=== PATIENT | female | born 1995 | race Caucasian/White ===

== ENCOUNTER 2017-10-12 23:07 | Emergency (ER) | payer MEDICAID ==
[2017-10-12 23:22] VITALS: BP 146/93; PULSE 70; RESP 18; TEMP 98.5; O2SAT 100
[2017-10-12 23:35] LABS: HCG,QUALITATIVE URINE NEGATIVE (NEGATIVE)
[2017-10-12 23:36] LABS: SQUAMOUS EPITHIAL 1 /hpf (0-5); URINE BACTERIA OCC (<OCC); URINE BILIRUBIN NEGATIVE (NEGATIVE); URINE BLOOD NEGATIVE (NEGATIVE); URINE CLARITY Clear (Clear); URINE COLOR Colorless (YELLOW); URINE GLUCOSE (UA) NORMAL (Normal); URINE LEUKOCYTE ESTERASE NEG Leu/uL (Negative); URINE PROTEIN NEGATIVE (NEGATIVE); URINE UROBILINOGEN NORMAL mg/dL (0.2-1.0)
--- NOTE | 2017-10-13 00:29 | C.PDOC ---
History Of Present Illness 22 year old female presents to the ED for evaluation of vomiting and diarrhea which began today. Patient had two episodes of vomiting and four episodes of diarrhea. She denies fever, chills, abdominal pain, or sick contacts. Time Seen by Provider: 10/12/17 23:25 Chief Complaint (Nursing): GI Problem History Per: Patient History/Exam Limitations: no limitations Onset/Duration Of Symptoms: Hrs Current Symptoms Are (Timing): Still Present Radiation Of Pain To:: None Quality Of Discomfort: denies: "Pain" Associated Symptoms: Vomiting, Diarrhea. denies: Fever, Chills Additional History Per: Patient Abnormal Vaginal Bleeding: No Past Medical History Reviewed: Historical Data, Nursing Documentation, Vital Signs Vital Signs: Last Vital Signs Temp 98.5 F 10/12/17 23:17 Pulse 70 10/12/17 23:17 Resp 18 10/12/17 23:17 BP 146/93 H 10/12/17 23:17 Pulse Ox 100 10/13/17 03:55 - Medical History PMH: No Chronic Diseases Surgical History: No Surg Hx Family History: States: Unknown Family Hx - Social History Hx Tobacco Use: No Hx Alcohol Use: No Hx Substance Use: No - Immunization History Hx Tetanus Toxoid Vaccination: No Hx Influenza Vaccination: No Hx Pneumococcal Vaccination: No Review Of Systems Constitutional: Negative for: Fever, Chills Gastrointestinal: Positive for: Vomiting, Diarrhea. Negative for: Abdominal Pain Physical Exam - Physical Exam Appears: Non-toxic, No Acute Distress Skin: Normal Color, Warm, Dry Head: Atraumatic, Normacephalic Eye(s): bilateral: Normal Inspection Oral Mucosa: Moist Neck: Supple Chest: Symmetrical, No Deformity, No Tenderness Cardiovascular: Rhythm Regular, No Murmur Respiratory: Normal Breath Sounds, No Rales, No Rhonchi, No Wheezing Gastrointestinal/Abdominal: Soft, No Tenderness, No Guarding, No Rebound Extremity: Normal ROM, Capillary Refill (less than 2 seconds ) Neurological/Psych: Oriented x3, Normal Speech, Normal Cognition ED Course And Treatment O2 Sat by Pulse Oximetry: 100 (on RA) Pulse Ox Interpretation: Normal Progress Note: Urinalysis ordered and reviewed. Zofran PO given. Patient did not have any episodes of vomiting while in the ED. She was PO challenged, and was able to tolerate PO intake. On re-exam, patient is resting comfortably, showing no signs of distress and reports an improvement in symptoms. Patient is stable for discharge and is advised to follow up with her PMD within 1-2 days for further evaluation. Advised to return to the ED if symptoms persist or worsen. Disposition - Disposition Referrals: Rai Blanchard [Staff Provider] - Disposition: HOME/ ROUTINE Disposition Time: 00:27 Condition: STABLE Additional Instructions: Follow up with your PMD within 1-2 days. Return to ED if feel worse. Prescriptions: Famotidine [Pepcid] 20 mg PO BID #20 tab Ondansetron [Zofran Odt] 1 - 2 tab PO .Q4-6H PRN #20 odt PRN Reason: Nausea/Vomiting Instructions: Viral Gastroenteritis Forms: [facility] (German), Work Excuse - Clinical Impression Clinical Impression: Gastroenteritis - PA / PROGRAM DIRECTOR/MUSIC DIRECTOR / Resident Statement MD/DO has reviewed & agrees with the documentation as recorded. - Scribe Statement The provider has reviewed the documentation as recorded by the Scribe (Tiffany Hanson) All medical record entries made by the Scribe were at my direction and personally dictated by me. I have reviewed the chart and agree that the record accurately reflects my personal performance of the history, physical exam, medical decision making, and the department course for this patient. I have also personally directed, reviewed, and agree with the discharge instructions and disposition.
== END 2017-10-13 00:34 | disposition home or self-care (01) ==
LOC: C.ER 23:07
DX: K52.9 Noninfective gastroenteritis and colitis, unspecified (principal)

== ENCOUNTER 2018-01-22 19:10 | Emergency (ER) | payer SELFPAY ==
--- NOTE | 2018-01-22 20:39 | C.PDOC ---
History Of Present Illness 22 y/o female c/o pinching sensation in left chest since sat, happens about 1 time per hour and lasts few seconds. no associated sob, diaphoresis, n/v. no pmx, not on ocp, no leg pain or swelling. no uri symptoms, no cough. no heavy lifting or trauma. Time Seen by Provider: 01/22/18 19:39 Chief Complaint (Nursing): Medical Clearance History Per: Patient History/Exam Limitations: no limitations Onset/Duration Of Symptoms: Days (3) Current Symptoms Are (Timing): Still Present Severity: Mild Past Medical History Reviewed: Historical Data, Nursing Documentation, Vital Signs Vital Signs: Last Vital Signs Temp 98.3 F 01/22/18 19:26 Pulse 86 01/22/18 19:26 Resp 20 01/22/18 19:26 BP 116/79 01/22/18 19:26 Pulse Ox 99 01/22/18 19:26 - Medical History PMH: No Chronic Diseases Family History: States: Unknown Family Hx - Social History Hx Tobacco Use: No Hx Alcohol Use: No Hx Substance Use: No - Immunization History Hx Tetanus Toxoid Vaccination: No Hx Influenza Vaccination: No Hx Pneumococcal Vaccination: No Review Of Systems Constitutional: Negative for: Fever, Chills Cardiovascular: Positive for: Chest Pain. Negative for: Palpitations, Edema, Light Headedness Respiratory: Negative for: Cough, Shortness of Breath Gastrointestinal: Negative for: Nausea, Vomiting, Abdominal Pain Skin: Negative for: Rash Neurological: Negative for: Weakness, Numbness Physical Exam - Physical Exam Appears: Non-toxic, No Acute Distress Skin: Warm, Dry, No Rash, No Ecchymosis Head: Atraumatic, Normacephalic Throat: No Erythema, No Exudate Neck: Supple Chest: Symmetrical, No Deformity, No Tenderness Cardiovascular: Rhythm Regular, No Murmur Respiratory: No Decreased Breath Sounds, No Rales, No Rhonchi, No Wheezing Gastrointestinal/Abdominal: Bowel Sounds, Soft, No Tenderness, No Guarding, No Rebound Back: No CVA Tenderness Extremity: Normal ROM, No Tenderness, No Pedal Edema, No Calf Tenderness, No Swelling Pulses: Left Radial: Normal, Right Radial: Normal Neurological/Psych: Oriented x3, Normal Speech, Normal Cognition, Normal Motor, Normal Sensation ED Course And Treatment - Laboratory Results Urine POC: Negative ECG: Interpreted By Me, Viewed By Me ECG Rhythm: Sinus Rhythm ECG Interpretation: Normal Interpretation Of ECG: nsr. no st-t changes Rate From EC O2 Sat by Pulse Oximetry: 99 Pulse Ox Interpretation: Normal Medical Decision Making Medical Decision Making: pt tigist intermittent pinching sensation to left side chest x 3 days. normal ekg. d/c home., f/u pmd. Disposition Counseled Patient/Family Regarding: Studies Performed, Diagnosis, Need For Followup, Rx Given - Disposition Referrals: Rai Blanchard [Staff Provider] - Disposition: HOME/ ROUTINE Disposition Time: 20:43 Condition: GOOD Additional Instructions: Follow up with your doctor in 1-2 days. Return to ER for any worse discomfort. Instructions: Chest Pain That Is Not Caused by the Heart (DC) Forms: [facility] (German), General Discharge Instructions - Clinical Impression Clinical Impression: Chest pain, atypical
[2018-01-23 01:08] VITALS: BP 118/75; PULSE 78; RESP 16; TEMP 98.3; O2SAT 99
== END 2018-01-22 20:48 | disposition home or self-care (01) ==
LOC: C.ER 19:10
DX: R07.89 Other chest pain (principal)